=== PATIENT | female | born 1955 | race American Indian/Alaskan Native ===

== ENCOUNTER 2017-03-28 10:49 | Emergency (ER) | payer SELFPAY ==
[2017-03-28] MEDS ORDERED: NORVASC ONE (11:20)
[2017-03-28] MEDS ORDERED: NORVASC PO ONE (11:26)
[2017-03-28 11:54] LABS: Basophils % (Auto) 0.3 % (0.0-1.8); Eosinophils % (Auto) 0.3 % (0.0-4.3); Hematocrit 43.1 % (30.3-42.9); Hemoglobin 14.4 gm/dl (10.1-14.3); Mean Corpuscular HGB Conc 33 % (30-34); Mean Corpuscular Hemoglobin 32 pg (28-32); Mean Corpuscular Volume 97 fl (79-97); Platelet Count 176 K/mm3 (140-440); Red Blood Count 4.46 M/mm3 (3.65-5.03); Red Cell Distribution Width 13.3 % (13.2-15.2); White Blood Count 3.1 K/mm3 (4.5-11.0)
[2017-03-28 12:56] LABS: Anion Gap 20 mmol/L; Blood Urea Nitrogen 14 mg/dL (7-17); Calcium 10.1 mg/dL (8.4-10.2); Carbon Dioxide 26 mmol/L (22-30); Chloride 98.1 mmol/L (98-107); Glucose 119 mg/dL (65-100); Potassium 3.4 mmol/L (3.6-5.0); Sodium 141 mmol/L (137-145)
[2017-03-28] MEDS ORDERED: APRESOLINE IV ONE (14:01)
--- NOTE | 2017-03-28 14:53 | Emergency Department Report ---
HPI - General Chief Complaint: High BP Time Seen by Provider: 03/28/17 14:08 - HPI HPI: This is a 62-year-old Afro-Serbian female presents to the emergency department with a complaint of uncontrolled blood pressure and a headache. The patient was at [facility] yesterday for a general checkup and was told that her blood pressure was severely elevated and it was recommended that she come to the emergency department. The patient says that this morning she developed a slight right-sided headache and it is gotten slightly worse since getting to the emergency department as her blood pressure has risen. She used to be on amlodipine. She also used to be on lisinopril but says that caused a cough. She's been out of the medication for many months that she ran out of insurance and did not have a primary care doctor. She has not taken anything for symptoms prior to presentation. No recent travel or sick contacts at home. ED Past Medical Hx - Past Medical History Previous Medical History?: Yes Hx Hypertension: Yes Hx Psychiatric Treatment: Yes (depression) - Surgical History Past Surgical History?: Yes Additional Surgical History: Tubaligation and - Social History Smoking Status: Current Every Day Smoker Substance Use Type: Alcohol, Cocaine, Marijuana, Prescribed - Medications Home Medications: Home Medications Medication Instructions Recorded Confirmed Last Taken Type Lisinopril [Zestril TAB] 20 mg PO QDAY 03/28/17 03/28/17 03/27/17 History Omeprazole Magnesium [PriLOSEC Otc] 20 mg PO PRN 03/28/17 03/28/17 Unknown History Sertraline [Zoloft] 25 mg PO QDAY 03/28/17 03/28/17 03/27/17 History hydrALAZINE [Apresoline TAB] 25 mg PO TID #90 tab 03/28/17 Unknown Rx ED Review of Systems ROS: Stated complaint: HIGH BP Other details as noted in HPI Comment: All other systems reviewed and negative Constitutional: denies: chills, fever Eyes: denies: eye pain, eye discharge, vision change ENT: denies: ear pain, throat pain Respiratory: denies: cough, shortness of breath, wheezing Cardiovascular: denies: chest pain, palpitations Gastrointestinal: denies: abdominal pain, nausea, diarrhea Genitourinary: denies: urgency, dysuria, discharge Musculoskeletal: denies: back pain, joint swelling, arthralgia Skin: denies: rash, lesions Neurological: headache. denies: weakness Physical Exam - Physical Exam Vital Signs: Vital Signs 03/28/17 03/28/17 03/28/17 11:06 11:26 13:58 Temperature 98 F 98.2 F Pulse Rate 104 H 104 H 96 H Respiratory 20 18 Rate Blood Pressure 185/138 185/138 192/137 O2 Sat by Pulse 98 98 Oximetry Physical Exam: GENERAL: The patient is well-developed well-nourished. HEENT: Normocephalic. Atraumatic. Extraocular motions are intact. Patient has moist mucous membranes. Pupils equal reactive to light bilaterally. No nystagmus. NECK: Supple. Trachea is midline. CHEST/LUNGS: Clear to auscultation. There is no respiratory distress noted. HEART/CARDIOVASCULAR: Regular. There is no tachycardia. There is no gallop rub or murmur. ABDOMEN: Abdomen is soft, nontender. Patient has normal bowel sounds. There is no abdominal distention. SKIN: Skin is warm and dry. NEURO: The patient is awake, alert, and oriented. The patient is cooperative. The patient has no focal neurologic deficits. The patient has normal speech. Cranial nerves II through XII grossly intact. MUSCULOSKELETAL: There is no tenderness or deformity. There is no limitation range of motion. There is no evidence of acute injury. ED Course Vital Signs 03/28/17 03/28/17 03/28/17 11:06 11:26 13:58 Temperature 98 F 98.2 F Pulse Rate 104 H 104 H 96 H Respiratory 20 18 Rate Blood Pressure 185/138 185/138 192/137 O2 Sat by Pulse 98 98 Oximetry ED Medical Decision Making - Lab Data Result diagrams: 03/28/17 11:19 03/28/17 11:19 - EKG Data -: EKG Interpreted by Me (with PVCs) EKG shows normal: sinus rhythm (PVCs), axis, intervals, QRS complexes, ST-T waves Rate: normal - EKG Data When compared to previous EKG there are: previous EKG unavailable Interpretation: normal EKG (occasional PVCs) - Radiology Data Radiology results: report reviewed CT of the head does not show any acute process including no hemorrhage, mass, shift, diffuse edema or skull fracture. - Medical Decision Making 62-year-old female presents to the emergency Department with uncontrolled blood pressure and medication noncompliance. She has a mild headache. For this reason a CT of the head was done without any contrast but it resulted as negative for any acute bleed, shift, mass or any acute process whatsoever. Patient's labs have been unremarkable. She was given some amlodipine earlier in the day orally, through triage, but it did not provide any resolution of her hypertension. An IV was placed and she was given a single dose of hydralazine and her blood pressure came down to a normal level. Once the blood pressure was controlled, the headache completely resolved. There are no focal, motor or sensory deficits. Cranial nerves are intact. The patient will be started on oral hydralazine to be taken 3 times a day. We discussed dietary changes, smoking cessation and keeping a blood pressure log. She will return to the ER with any worsening of her symptoms or any acute distress. - Differential Diagnosis subarachnoid, tension headache, migraine, hypertensive crisis Critical Care Time: No Critical care attestation.: If time is entered above; I have spent that time in minutes in the direct care of this critically ill patient, excluding procedure time. ED Disposition Clinical Impression: Hypertensive urgency, Noncompliance with medication regimen, Tobacco use Disposition: DISCHARGED TO HOME OR SELFCARE Is pt being admited?: No Condition: Stable Instructions: How to Stop Smoking (ED), Hypertension (ED) Additional Instructions: Please follow-up with a primary care doctor in the next few days. Please try and quit smoking. Try to stay away from foods that are high in salt and caffeinated products to help with your blood pressure. Keep a blood pressure log. Return to the emergency department with any worsening of your symptoms or any acute distress. Prescriptions: hydrALAZINE [Apresoline TAB] 25 mg PO TID #90 tab Referrals: PRIMARY CAREMD [Primary Care Provider] - 3-5 Days YASSINE HOOPER MD, PHD [Staff Physician] - 3-5 Days LATRICIA BARROS MD [Staff Physician] - 3-5 Days [facility] [Outside] - 3-5 Days Time of Disposition: 15:45
--- NOTE | 2017-03-28 15:22 | Cat Scan Report ---
CT HEAD WITHOUT CONTRAST INDICATION: Headache with hypertension. COMPARISON: None similar. FINDINGS: Noncontrast head CT demonstrates symmetric, age-appropriate ventricles and sulci without acute or recent infarct, hemorrhage, mass effect or midline shift. 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 No abnormal extra-axial fluid collections. Posterior fossa structures and basilar cisterns appear within normal limits. Clear paranasal sinuses and mastoid air cells. Intact calvarium. Normal overlying scalp soft tissues. Numerous radiopaque dental material incidentally noted. CONCLUSION: No acute intracranial CT abnormality, as described. Thank you for the opportunity to participate in this patient's care.
[2017-03-28 16:23] VITALS: BP 129/81
== END 2017-03-28 16:26 | disposition home or self-care (01) ==
LOC: ED 10:49
DX: I10 Essential (primary) hypertension (principal); Z91.14 Patient's other noncompliance with medication regimen; F32.9 Major depressive disorder, single episode, unspecified; F17.200 Nicotine dependence, unspecified, uncomplicated; F12.10 Cannabis abuse, uncomplicated; F14.10 Cocaine abuse, uncomplicated
CPT/HCPCS: 36415; 70450; 80048; 84484; 85025; 93005; 93010; 96374; 99285; J0360